=== PATIENT | male | born 1945 | race Two or more races ===

== ENCOUNTER 2016-10-17 13:04 | Inpatient (IN) | payer OTHER ==
[2016-10-17 14:04] VITALS: BMI 18.1
--- NOTE | 2016-10-17 15:32 | HP ---
CIWA Score - CIWA Score Nausea/Vomitin Muscle Tremors: 2 Anxiety: 2 Agitation: 1-Slight > Activity Paroxysmal Sweats: 3 Orientation: 2-Disoriented Date<2 days Tacttile Disturbances: 0-None Auditory Disturbances: 2-Mild Harshness/Frighten Visual Disturbances: 3-Moderate Sensitivity Headache: 3-Moderate CIWA-Ar Total Score: 21 Admission ROS BHS - HPI Chief Complaint: "I need Detox." Patient is here to Detox from Alcohol. Allergies/Adverse Reactions: Allergies Allergy/AdvReac Type Severity Reaction Status Date / Time No Known Allergies Allergy Verified 10/17/16 14:14 History of Present Illness: Pt. is a 71 YO male here to Detox from Alcohol. Pt. had 1 previous Detox admission at [facility] in 2013. Exam Limitations: No Limitations - Ebola screening Have you traveled outside of the country in the last 21 days: No Have you had contact with anyone from an Ebola affected area: No Have you been sick,other than usual withdrawal symptoms: No Do you have a fever: No - Review of Systems Constitutional: Chills, Diaphoresis, Fever, Loss of Appetite, Malaise, Night Sweats, Changes in sleep, Unintentional Wgt. Loss (Lost approx. 25 lbs. over the last 6 months.) EENT: reports: Blurred Vision, Tearing, Tinnitus (Left Ear only.), Nose Congestion, Sinus Pressure (Upper and Lower Dentures.) Cardiac: reports: Palpitations GI: reports: Diarrhea, Nausea, Poor Appetite, Abdominal cramping : reports: Frequency Musculoskeletal: reports: Joint Pain, Muscle Pain, Joint Stiffness, Other ( Patient ambulates with assistance of a cane.) Integumentary: reports: No Symptoms Reported Neuro: reports: Headache (Mild.), Numbness (Intermittent in Right Leg.), Tingling (Intermittent in Right Leg.), Tremors Endocrine: reports: No Symptoms Reported Hematology: reports: No Symptoms Reported Psychiatric: reports: Judgement Intact, Mood/Affect Appropiate, Anxious, Depressed (Takes med.), Disorientated Other Systems: Reviewed and Negative Patient History - Patient Medical History Hx Anemia: No Hx Asthma: No Hx Chronic Obstructive Pulmonary Disease (COPD): No Hx Cancer: No Hx Cardiac Disorders: No Hx Congestive Heart Failure: No Hx Hypertension: Yes (Takes med.) Hx Hypercholesterolemia: No Hx Pacemaker: No HX Cerebrovascular Accident: No Hx Seizures: No Hx Dementia: No Hx Diabetes: No Hx Gastrointestinal Disorders: No Hx Liver Disease: Yes (Hep C, diagnosed 2015.) Hx Genitourinary Disorders: No Hx Sexually Transmitted Disorders: No Hx Renal Disease (ESRD): No Hx Thyroid Disease: No Hx Human Immunodeficiency Virus (HIV): No (Last Tested: 2016: NEGATIVE.) Hx Hepatitis C: Yes (Diagnosed, 2016.) Hx Depression: Yes (On med.) Hx Suicide Attempt: No (PATIENT DENIES CURRENT SI / HI.) Hx Bipolar Disorder: No Hx Schizophrenia: No - Patient Surgical History Past Surgical History: Yes Other Surgical History: 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 Anesthesia Reaction: No - PPD History Previous Implant?: Yes Documented Results: Negative w/proof Implanted On Prior [facility] Admission?: Yes Date: 03/02/14 PPD to be Administered?: Yes - Reproductive History Patient is a Female of Child Bearing Age (11 -55 yrs old): No (PATIENT IS MALE.) - Smoking Cessation Smoking history: Current every day smoker Have you smoked in the past 12 months: Yes Aproximately how many cigarettes per day: 10 Cigars Per Day: 0 Hx Chewing Tobacco Use: No Initiated information on smoking cessation: Yes 'Breaking Loose' booklet given: 10/17/16 (GIVEN ON UNIT.) - Substance & Tx. History Hx Alcohol Use: Yes Hx Substance Use: Yes Substance Use Type: Alcohol Hx Substance Use Treatment: Yes (1 Previous Detox admission at [facility], 2013.) - Substances Abused Alcohol Route: Oral Frequency: Daily Amount used: wine (2 pints) Age of first use: 14 Date of Last Use: 10/17/16 Family Disease History - Family Disease History Family Disease History: Other: Father (ETOH DEPENDENT - ) Admission Physical Exam BHS - Vital Signs Vital Signs: Vital Signs - 24 hr 10/17/16 13:57 Temperature 96.0 F L Pulse Rate 96 H Respiratory 18 Rate Blood Pressure 126/46 - Physical General Appearance: Yes: No Apparent Distress, Appropriately Dressed, Thin, Tremorous, Anxious HEENTM: Yes: Hearing grossly Normal, Normocephalic, Normal Voice, MASOOD, Pharynx Normal Respiratory: Yes: Chest Non-Tender, Lungs Clear, No Respiratory Distress Neck: Yes: No masses,lesions,Nodules, Supple, Trachea in good position Breast: Yes: Breast Exam Deferred Cardiology: Yes: Regular Rhythm, Regular Rate, S1, S2 Abdominal: Yes: Normal Bowel Sounds, Non Tender, Flat, Soft Genitourinary: Yes: Frequency Back: Yes: Decreased Range of Motion Musculoskeletal: Yes: Gait Steady, Joint Stiffness, Other (Patient ambulates with Assistance of a Cane.) Extremities: Yes: Tremors Neurological: Yes: Alert, Normal Mood/Affect, Disoriented (To Day / Date.) Integumentary: Yes: Normal Color, Dry, Warm Lymphatic: Yes: Within Normal Limits - Diagnostic (1) Alcohol dependence with uncomplicated withdrawal Current Visit: Yes Status: Acute (2) Hypertension Current Visit: Yes Status: Chronic Qualifiers: Hypertension type: essential hypertension Qualified Code(s): I10 - Essential (primary) hypertension (3) Hep C w/o coma, chronic Current Visit: Yes Status: Chronic (4) Nicotine dependence Current Visit: Yes Status: Chronic Qualifiers: Nicotine product type: cigarettes Substance use status: uncomplicated Qualified Code(s): F17.210 - Nicotine dependence, cigarettes, uncomplicated (5) History of amputation of great toe Current Visit: Yes Status: Resolved Cleared for Admission [facility] - Detox or Rehab [facility] Level of Care: Medically Managed (ADVISED PATIENT TO FOLLOW-UP WITH SUPREME COURT JUDGE AFTER DISCHARGE FROM DETOX FOR GENERAL MEDICAL ASSESSMENT ADN FOR HISTORY OF HTN AND HEP C.) Detox Regimen/Protocol: Librium S Breath Alcohol Content Breath Alcohol Content: 0.111 Urine Drug Screen - Results Drug Screen Negative: Yes
[2016-10-17] MEDS ORDERED: MAGNESIUM HYDROX 2400MG/30ML ORAL SUSPENSION 30 ML CUP PO PRN (16:12)
[2016-10-17] MEDS ORDERED: LOPERAMIDE HCL 2 MG CAPSULE PO PRN (16:12)
[2016-10-17] MEDS ORDERED: guaiFENesin/D-METHORPHAN HB 10 ML UNIT-DOSE CUPS PO PRN (16:12)
[2016-10-17] MEDS ORDERED: MAGNESIUM CITRATE 300 ML BOTTLE PO PRN (16:12)
[2016-10-17] MEDS ORDERED: P-EPHED 60MG/TRIPROLIDI 2.5MG TABLET PO PRN (16:12)
[2016-10-17] MEDS ORDERED: hydrOXYzine PAMOATE 50 MG CAPSULE (FP) PO PRN (16:12)
[2016-10-17] MEDS ORDERED: IBUPROFEN 400 MG TABLET (FP) PO PRN (16:12)
[2016-10-17] MEDS ORDERED: NICOTINE POLACRILEX 2 MG GUM BC PRN (16:12)
[2016-10-17] MEDS ORDERED: chlordiazePOXIDE HCL 25 MG CAPSULE PO PRN (16:12)
[2016-10-17] MEDS ORDERED: diphenhydrAMINE HCL 50 MG CAPSULE PO PRN (16:12)
[2016-10-17] MEDS ORDERED: MAG HYDROX/AL HYDROX/SIMETH 30 ML UNIT-DOSE CUP PO PRN (16:12)
[2016-10-17] MEDS ORDERED: MENTHOL/PHENOL 1 EACH UD MM PRN (16:12)
[2016-10-17] MEDS ORDERED: ACETAMINOPHEN 325 MG TABLET (FP) PO PRN (16:12)
[2016-10-17] MEDS ORDERED: chlordiazePOXIDE HCL 25 MG CAPSULE PO ONE (16:45)
[2016-10-17] MEDS: chlordiazePOXIDE HCL 25 MG CAPSULE PO SCH ×2 (17:38→22:32)
[2016-10-17] MEDS: NICOTINE 21 MG/24 HOURS TOPICAL PATCH TD SCH (17:39)
[2016-10-17] MEDS: THIAMINE HCL 100 MG TABLET (FP) PO SCH (22:32)
[2016-10-18] MEDS: chlordiazePOXIDE HCL 25 MG CAPSULE PO SCH ×4 (05:46→22:19)
--- NOTE | 2016-10-18 09:24 | EKG ---
Test Reason : Blood Pressure : / mmHG Vent. Rate : 070 BPM Atrial Rate : 070 BPM P-R Int : 176 ms QRS Dur : 102 ms QT Int : 398 ms P-R-T Axes : 080 061 067 degrees QTc Int : 429 ms NORMAL SINUS RHYTHM MINIMAL VOLTAGE CRITERIA FOR LVH, MAY BE NORMAL VARIANT NO PREVIOUS ECGS AVAILABLE Confirmed by YAN MOLINA MD ([id number]) on 10/18/2016 9:24:35 AM Referred By: Confirmed By:YAN MOLINA MD
--- NOTE | 2016-10-18 10:05 | PN ---
[facility] CIWA - CIWA Score Nausea/Vomitin-No Nausea/No Vomiting Muscle Tremors: 4-Moderate,w/Arms Extend Anxiety: 4-Mod. Anxious/Guarded Agitation: 4-Moderately Restless Paroxysmal Sweats: 1-Minimal Palms Moist Orientation: 0-Oriented Tacttile Disturbances: 3-Moderate Itch/Numb/Burn Auditory Disturbances: 0-None Visual Disturbances: 0-None Headache: 0-None Present CIWA-Ar Total Score: 16 BHS Progress Note (SOAP) Subjective: ANXIETY,FATIGUE,C/O DROWSINESS. Objective: 10/18/16 10:04 Vital Signs Temperature 97.5 F L 10/18/16 09:31 Pulse Rate 91 H 10/18/16 09:31 Respiratory Rate 20 10/18/16 09:31 Blood Pressure 101/64 10/18/16 09:31 O2 Sat by Pulse Oximetry (%) LAB RESULTS PENDING Assessment: 10/18/16 10:04 WITHDRAWAL SX Plan: CONTINUE DETOX HOLD LIBRIUM AT 10 AM TODAY.
[2016-10-18 10:10] LABS: URINE APPEARANCE CLEAR; URINE BILIRUBIN NEGATIVE (NEGATIVE); URINE BLOOD NEGATIVE (NEGATIVE); URINE COLOR YELLOW; URINE GLUCOSE (UA) NEGATIVE (NEGATIVE); URINE KETONE NEGATIVE (NEGATIVE); URINE LEUK ESTERASE NEGATIVE (NEGATIVE); URINE NITRITE NEGATIVE (NEGATIVE); URINE PROTEIN NEGATIVE (NEGATIVE); URINE UROBILINOGEN NEGATIVE E.U./dl (0.2-1.0)
[2016-10-18 10:26] LABS: MCH 33.9 pg (25.7-33.7); MCHC 33.7 g/dl (32.0-35.9); MEAN CELL VOLUME 100.8 fl (80-96); MEAN PLT VOLUME 9.5 fl (7.5-11.1); PLATELET COUNT 90 K/MM3 (134-434); RDW 16.3 % (11.9-15.9); WHITE BLOOD COUNT 5.6 K/mm3 (4.0-10.0)
[2016-10-18] MEDS: amLODIPine BESYLATE 10 MG TABLET (FP) PO SCH (10:29)
[2016-10-18] MEDS: PRENATAL VITAMINS W/ FOLIC ACID TABLET (FP) PO SCH (10:30)
[2016-10-18] MEDS: PANTOPRAZOLE 40 MG TABLET (FP) PO SCH (10:30)
[2016-10-18] MEDS: NICOTINE 21 MG/24 HOURS TOPICAL PATCH TD SCH (10:31)
[2016-10-18 12:11] LABS: ALBUMIN 3.3 g/dl (3.4-5.0); ANION GAP 6 (8-16); CALCIUM 8.8 mg/dL (8.5-10.1); CO2 32 mmol/L (21-32); COCKROFT - GAULT 71.66; CREATININE 0.8 mg/dL (0.7-1.3); GLUCOSE,RANDOM 89 mg/dL (74-106); SGOT/AST 70 U/L (15-37); SGPT/ALT 22 U/L (12-78)
[2016-10-18 12:12] LABS: ALK PHOS 77 U/L (45-117); BILIRUBIN,TOTAL 0.8 mg/dL (0.2-1.0); TOT PROT 6.4 g/dl (6.4-8.2)
--- NOTE | 2016-10-18 12:22 | CONSULT ---
[facility] Psychiatric Consult - Data Date of interview: 10/18/16 Admission source: [facility] Identifying data: Readmission to [facility] for this 71 y/o AA male seeking detox treatment for alcohol dependence.Patient is single,a father of three, domiciled,unemployed (disabled) and supported on SSI benefits. Substance Abuse History: - Smoking Cessation. Smoking history: Current every day smoker. Have you smoked in the past 12 months: Yes. Aproximately how many cigarettes per day: 10. Cigars Per Day: 0. Hx Chewing Tobacco Use: No. Initiated information on smoking cessation: Yes. 'Breaking Loose' booklet given : 10/17/16 (GIVEN ON UNIT.). - Substance & Tx. History. Hx Alcohol Use: Yes. Hx Substance Use: Yes. Substance Use Type: Alcohol. Hx Substance Use Treatment : Yes (1 Previous Detox admission at [facility], 2013.). - Substances Abused. Alcohol. Route: Oral. Frequency: Daily. Amount used: wine (2 pints). Age of first use: 14. Date of Last Use: 10/17/16. Confirmed by patient. Medical History: Hypertension,hepatitis C,arthritis,tinnitus (left ear) and a history of amputation of both great toes (frostbite). Psychiatric History: Patient admits to a history of psychiatric hospitalizations (he remembers being committed at [facility] in [facility],years ago).No recollection of diagnosis or psychotropic medications.Mr Clay states that he has not had psychiatric outpatient services for several years.He denies history of suicide attempts. Physical/Sexual Abuse/Trauma History: Patient denies. Additional Comment: Drug Screen is negative. Mental Status Exam - Mental Status Exam Alert and Oriented to: Time, Place, Person Cognitive Function: Good Patient Appearance: Unkempt, Disheveled Mood: Withdrawn Affect: Mood Congruent, Constricted Patient Behavior: Fatigued, Appropriate, Cooperative Voice Loudness: Mildly Soft/Quiet Thought Process: Goal Oriented Thought Disorder: Not Present Hallucinations: Denies Suicidal Ideation: Denies Homicidal Ideation: Denies Insight/Judgement: Poor Sleep: Fair Appetite: Poor, Weight loss Gait/Station: Other (walks with a cane) Psychiatric Findings - Problem List ([place] 1, 2,3) (1) Alcohol dependence with uncomplicated withdrawal Current Visit: Yes Status: Acute (2) Alcohol-induced mood disorder Current Visit: Yes Status: Acute (3) Nicotine dependence Current Visit: Yes Status: Acute Qualifiers: Nicotine product type: cigarettes Substance use status: uncomplicated Qualified Code(s): F17.210 - Nicotine dependence, cigarettes, uncomplicated (4) Hypertension Current Visit: Yes Status: Chronic Qualifiers: Hypertension type: essential hypertension Qualified Code(s): I10 - Essential (primary) hypertension (5) History of amputation of great toe Current Visit: Yes Status: Resolved (6) Arthritis Current Visit: Yes Status: Chronic (7) Hepatitis C Current Visit: Yes Status: Chronic - Initial Treatment Plan Initial Treatment Plan: Psychoeducation.Detoxification in progress.Observation.
[2016-10-18] MEDS: THIAMINE HCL 100 MG TABLET (FP) PO SCH (22:19)
[2016-10-19] MEDS: chlordiazePOXIDE HCL 25 MG CAPSULE PO SCH ×2 (06:09→10:27)
[2016-10-19] MEDS: NICOTINE 21 MG/24 HOURS TOPICAL PATCH TD SCH (10:27)
[2016-10-19] MEDS: PRENATAL VITAMINS W/ FOLIC ACID TABLET (FP) PO SCH (10:27)
[2016-10-19] MEDS: amLODIPine BESYLATE 10 MG TABLET (FP) PO SCH (10:27)
[2016-10-19] MEDS: PANTOPRAZOLE 40 MG TABLET (FP) PO SCH (10:27)
--- NOTE | 2016-10-19 13:15 | PN ---
S CIWA - CIWA Score Nausea/Vomitin Muscle Tremors: 2 Anxiety: 2 Agitation: 2 Paroxysmal Sweats: 2 Orientation: 0-Oriented Tacttile Disturbances: 1-Very Mild Itch/Numbness Auditory Disturbances: 0-None Visual Disturbances: 0-None Headache: 2-Mild CIWA-Ar Total Score: 13 S Progress Note (SOAP) Subjective: sweats, shakes, interrupted sleep Objective: 10/19/16 13:13 Vital Signs - 8 hr 10/19/16 10/19/16 06:30 10:28 Temperature 97.4 F L 98.1 F Pulse Rate 75 77 Respiratory 16 18 Rate Blood Pressure 90/50 102/65 Laboratory Last Values WBC 5.6 K/mm3 (4.0-10.0) 10/18/16 07:00 RBC 3.76 M/mm3 (4.00-5.60) L D 10/18/16 07:00 Hgb 12.8 GM/dL (11.7-16.9) D 10/18/16 07:00 Hct 37.9 % (35.4-49) D 10/18/16 07:00 MCV 100.8 fl (80-96) H 10/18/16 07:00 MCHC 33.7 g/dl (32.0-35.9) 10/18/16 07:00 RDW 16.3 % (11.9-15.9) H 10/18/16 07:00 Plt Count 90 K/MM3 (134-434) L D 10/18/16 07:00 MPV 9.5 fl (7.5-11.1) 10/18/16 07:00 Sodium 140 mmol/L (136-145) 10/18/16 07:00 Potassium 3.4 mmol/L (3.5-5.1) L D 10/18/16 07:00 Chloride 102 mmol/L (98-107) 10/18/16 07:00 Carbon Dioxide 32 mmol/L (21-32) 10/18/16 07:00 Anion Gap 6 (8-16) L 10/18/16 07:00 BUN 5 mg/dL (7-18) L D 10/18/16 07:00 Creatinine 0.8 mg/dL (0.7-1.3) D 10/18/16 07:00 Creat Clearance w eGFR > 60 (>60) 10/18/16 07:00 Random Glucose 89 mg/dL (74-106) 10/18/16 07:00 Calcium 8.8 mg/dL (8.5-10.1) 10/18/16 07:00 Total Bilirubin 0.8 mg/dL (0.2-1.0) D 10/18/16 07:00 AST 70 U/L (15-37) H D 10/18/16 07:00 ALT 22 U/L (12-78) D 10/18/16 07:00 Alkaline Phosphatase 77 U/L (45-117) 10/18/16 07:00 Total Protein 6.4 g/dl (6.4-8.2) 10/18/16 07:00 Albumin 3.3 g/dl (3.4-5.0) L D 10/18/16 07:00 Urine Color Yellow 10/17/16 08:00 Urine Appearance Clear 10/17/16 08:00 Urine pH 6.0 (5.0-8.0) 10/17/16 08:00 Ur Specific [place] 1.010 (1.005-1.025) 10/17/16 08:00 Urine Protein Negative (NEGATIVE) 10/17/16 08:00 Urine Glucose (UA) Negative (NEGATIVE) 10/17/16 08:00 Urine Ketones Negative (NEGATIVE) 10/17/16 08:00 Urine Blood Negative (NEGATIVE) 10/17/16 08:00 Urine Nitrite Negative (NEGATIVE) 10/17/16 08:00 Urine Bilirubin Negative (NEGATIVE) 10/17/16 08:00 Urine Urobilinogen Negative E.U./dl (0.2-1.0) 10/17/16 08:00 Ur Leukocyte Esterase Negative (NEGATIVE) 10/17/16 08:00 RPR Titer Nonreactive (NONREACTIVE) 10/18/16 07:00 labs noted Assessment: 10/19/16 13:14 withdrawal sx hypokalemia Plan: continue detox potassium supplement repeat bmp on 10/21
[2016-10-19] MEDS: POTASSIUM CHLORIDE TABS 20 MEQ TABLET.ER (FP) PO SCH (14:51)
[2016-10-19] MEDS: chlordiazePOXIDE 5 MG CAPSULE PO SCH ×2 (17:33→22:42)
[2016-10-19] MEDS: THIAMINE HCL 100 MG TABLET (FP) PO SCH (22:42)
[2016-10-20] MEDS: chlordiazePOXIDE 5 MG CAPSULE PO SCH ×2 (06:12→10:34)
[2016-10-20] MEDS: PANTOPRAZOLE 40 MG TABLET (FP) PO SCH (10:34)
[2016-10-20] MEDS: PRENATAL VITAMINS W/ FOLIC ACID TABLET (FP) PO SCH (10:34)
[2016-10-20] MEDS: amLODIPine BESYLATE 10 MG TABLET (FP) PO SCH (10:35)
[2016-10-20] MEDS: NICOTINE 21 MG/24 HOURS TOPICAL PATCH TD SCH ×2 (10:35→10:37)
[2016-10-20] MEDS: POTASSIUM CHLORIDE TABS 20 MEQ TABLET.ER (FP) PO SCH (10:35)
--- NOTE | 2016-10-20 15:33 | PN ---
BHS Progress Note (SOAP) Subjective: Sweating, anxious, interrupted sleep Objective: 10/20/16 15:27 Last Vital Signs Temp Pulse Resp BP Pulse Ox 97.6 F 76 18 88/56 10/20/16 13:53 10/20/16 13:53 10/20/16 13:53 10/20/16 13:53 Noted with hypotension Laboratory Tests 10/17/16 10/18/16 10/18/16 08:00 07:00 07:00 WBC 5.6 RBC 3.76 L D Hgb 12.8 D Hct 37.9 D MCV 100.8 H MCHC 33.7 RDW 16.3 H Plt Count 90 L D MPV 9.5 Sodium 140 Potassium 3.4 L D Chloride 102 Carbon Dioxide 32 Anion Gap 6 L BUN 5 L D Creatinine 0.8 D Creat Clearance w eGFR > 60 Random Glucose 89 Calcium 8.8 Total Bilirubin 0.8 D AST 70 H D ALT 22 D Alkaline Phosphatase 77 Total Protein 6.4 Albumin 3.3 L D Urine Color Yellow Urine Appearance Clear Urine pH 6.0 Ur Specific [place] 1.010 Urine Protein Negative Urine Glucose (UA) Negative Urine Ketones Negative Urine Blood Negative Urine Nitrite Negative Urine Bilirubin Negative Urine Urobilinogen Negative Ur Leukocyte Esterase Negative RPR Titer 10/18/16 07:00 WBC RBC Hgb Hct MCV MCHC RDW Plt Count MPV Sodium Potassium Chloride Carbon Dioxide Anion Gap BUN Creatinine Creat Clearance w eGFR Random Glucose Calcium Total Bilirubin AST ALT Alkaline Phosphatase Total Protein Albumin Urine Color Urine Appearance Urine pH Ur Specific [place] Urine Protein Urine Glucose (UA) Urine Ketones Urine Blood Urine Nitrite Urine Bilirubin Urine Urobilinogen Ur Leukocyte Esterase RPR Titer Nonreactive Labs noted: K 3.4 Assessment: 10/20/16 15:29 Withdrawal symptoms Noted with hypotension and hypokalemia Plan: Continue detox Hypotension: asymptomatic, encouraged to drink lots of water (water pitcher ordered), change position slowly and get up slowly if ever felt dizzy or lightheaded Hypokalemia: replenished
[2016-10-20] MEDS: chlordiazePOXIDE HCL 10 MG CAPSULE PO SCH ×2 (17:38→22:34)
[2016-10-20] MEDS: THIAMINE HCL 100 MG TABLET (FP) PO SCH (22:34)
[2016-10-21] MEDS: chlordiazePOXIDE HCL 10 MG CAPSULE PO SCH (05:58)
[2016-10-21 09:28] VITALS: BP 114/78; PULSE 82; TEMP 97.1
--- NOTE | 2016-10-21 12:24 | DS ---
[facility] Detox Discharge Summary Admission Date: 10/17/16 Discharge Date: 10/21/16 - History Present History: Alcohol Dependence Pertinent Past History: HTN Hepatitis C GERD - Physical Exam Results Vital Signs: Vital Signs Temperature 97.1 F L 10/21/16 09:28 Pulse Rate 82 10/21/16 09:28 Respiratory Rate 18 10/21/16 09:28 Blood Pressure 114/78 10/21/16 09:28 O2 Sat by Pulse Oximetry (%) Pertinent Admission Physical Exam Findings: Withdrawal symptoms Laboratory Tests 10/17/16 10/18/16 10/18/16 08:00 07:00 07:00 WBC 5.6 RBC 3.76 L D Hgb 12.8 D Hct 37.9 D MCV 100.8 H MCHC 33.7 RDW 16.3 H Plt Count 90 L D MPV 9.5 Sodium 140 Potassium 3.4 L D Chloride 102 Carbon Dioxide 32 Anion Gap 6 L BUN 5 L D Creatinine 0.8 D Creat Clearance w eGFR > 60 Random Glucose 89 Calcium 8.8 Total Bilirubin 0.8 D AST 70 H D ALT 22 D Alkaline Phosphatase 77 Total Protein 6.4 Albumin 3.3 L D Urine Color Yellow Urine Appearance Clear Urine pH 6.0 Ur Specific [place] 1.010 Urine Protein Negative Urine Glucose (UA) Negative Urine Ketones Negative Urine Blood Negative Urine Nitrite Negative Urine Bilirubin Negative Urine Urobilinogen Negative Ur Leukocyte Esterase Negative RPR Titer 10/18/16 07:00 WBC RBC Hgb Hct MCV MCHC RDW Plt Count MPV Sodium Potassium Chloride Carbon Dioxide Anion Gap BUN Creatinine Creat Clearance w eGFR Random Glucose Calcium Total Bilirubin AST ALT Alkaline Phosphatase Total Protein Albumin Urine Color Urine Appearance Urine pH Ur Specific [place] Urine Protein Urine Glucose (UA) Urine Ketones Urine Blood Urine Nitrite Urine Bilirubin Urine Urobilinogen Ur Leukocyte Esterase RPR Titer Nonreactive Labs noted - Treatment Hospital Course: Detox Protocol Followed, Detoxed Safely, Responded well, Discharged Condition Good - Medication Discharge Medications: Ambulatory Orders Amlodipine Besylate 10 mg PO DAILY 10/17/16 Citalopram Hydrobromide [Celexa -] 20 mg PO DAILY 10/17/16 Folic Acid - 1 mg PO DAILY 10/17/16 Multivitamins [Tab-A-Vit -] 1 tab PO DAILY 10/17/16 Naproxen [Naprosyn -] 500 mg PO BID 10/17/16 Pantoprazole Sodium [Protonix] 40 mg PO DAILY 10/17/16 Thiamine Mononitrate [Vitamin B-1] 100 mg PO DAILY 10/17/16 - Diagnosis (1) Alcohol dependence with uncomplicated withdrawal Status: Acute (2) Nicotine dependence Status: Chronic Qualifiers: Nicotine product type: cigarettes Substance use status: uncomplicated Qualified Code(s): F17.210 - Nicotine dependence, cigarettes, uncomplicated (3) Hep C w/o coma, chronic Status: Chronic (4) Hypertension Status: Chronic Qualifiers: Hypertension type: essential hypertension Qualified Code(s): I10 - Essential (primary) hypertension (5) GERD (gastroesophageal reflux disease) Status: Acute (6) Depression Status: Chronic (7) Hypokalemia Status: Acute - AMA Did Patient Leave Against Medical Advice: No
[2016-10-21 14:34] LABS: CALCIUM 9.1 mg/dL (8.5-10.1); COCKROFT - GAULT 95.54; CREATININE 0.6 mg/dL (0.7-1.3)
== END 2016-10-21 09:10 | disposition home or self-care (01) | DRG 897 ==
LOC: YASAS 13:04 → Y3N 15:20
PROVIDERS: ADMIT Internal Medicine; ATTEND Internal Medicine
PROC: HZ2ZZZZ Detoxification Services for Substance Abuse Treatment (ICD-10-PCS; principal; 2016-10-21)
DX: F10.230 Alcohol dependence with withdrawal, uncomplicated (principal); F17.210 Nicotine dependence, cigarettes, uncomplicated; F10.24 Alcohol dependence with alcohol-induced mood disorder; M12.9 Arthropathy, unspecified; B19.20 Unspecified viral hepatitis C without hepatic coma; B18.2 Chronic viral hepatitis C; Z89.412 Acquired absence of left great toe; Z89.411 Acquired absence of right great toe
CPT/HCPCS: 36415; 80048; 80053; 81003; 85027; 86593; 93005; 93010